=== PATIENT | female | born 1990 | race American Indian/Alaskan Native ===

== ENCOUNTER 2017-12-12 07:57 | Emergency (ER) | payer SELFPAY ==
[2017-12-12 08:13] VITALS: BP 105/60
[2017-12-12 08:34] LABS: Basophils % (Auto) 0.1 % (0.0-1.8); Eosinophils # (Auto) 0.1 K/mm3 (0.0-0.4); Eosinophils % (Auto) 0.7 % (0.0-4.3); Hematocrit 36.6 % (30.3-42.9); Hemoglobin 11.8 gm/dl (10.1-14.3); Lymphocytes # (Auto) 1.8 K/mm3 (1.2-5.4); Lymphocytes % (Auto) 22.8 % (13.4-35.0); Mean Corpuscular HGB Conc 32 % (30-34); Mean Corpuscular Hemoglobin 30 pg (28-32); Mean Corpuscular Volume 95 fl (79-97); Monocytes # (Auto) 0.5 K/mm3 (0.0-0.8); Monocytes % (Auto) 5.9 % (0.0-7.3); Platelet Count 212 K/mm3 (140-440); Red Blood Count 3.87 M/mm3 (3.65-5.03); Red Cell Distribution Width 14.1 % (13.2-15.2)
[2017-12-12 08:51] LABS: Alanine Aminotransferase 10 units/L (7-56); Albumin 3.7 g/dL (3.9-5); BUN/Creatinine Ratio 23; Blood Urea Nitrogen 7 mg/dL (7-17); Calcium 8.2 mg/dL (8.4-10.2); Hemolysis Index 24
[2017-12-12 11:48] LABS: Bacteria,Urine 1+ /HPF (Negative); Bilirubin,Urine NEG (Negative); Blood,Urine NEG (Negative); Color,Urine Yellow (Yellow); Mucus,Urine FEW /HPF; Nitrite,Urine NEG (Negative); Protein,Urine <15 mg/dL mg/dL (Negative); Urobilinogen,Urine < 2.0 mg/dL (<2.0); WBC,Urine < 1.0 /HPF (0.0-6.0)
== END 2017-12-12 09:00 | disposition left against medical advice (07) ==
LOC: ED 07:57
DX: R10.9 Unspecified abdominal pain (principal); Z53.21 Procedure and treatment not carried out due to patient leaving prior to being seen by health care provider
CPT/HCPCS: 36415; 80053; 81001; 84703; 85025

== ENCOUNTER 2018-06-15 19:54 | Inpatient (IN) | payer MEDICAID ==
[2018-06-15 22:46] LABS: Basophils % (Auto) 0.2 % (0.0-1.8); Eosinophils # (Auto) 0.1 K/mm3 (0.0-0.4); Eosinophils % (Auto) 0.8 % (0.0-4.3); Hematocrit 29.5 % (30.3-42.9); Hemoglobin 10.5 gm/dl (10.1-14.3); Mean Corpuscular HGB Conc 36 % (30-34); Mean Corpuscular Hemoglobin 32 pg (28-32); Mean Corpuscular Volume 89 fl (79-97); Monocytes # (Auto) 0.5 K/mm3 (0.0-0.8); Monocytes % (Auto) 6.1 % (0.0-7.3); Platelet Count 231 K/mm3 (140-440); Red Blood Count 3.31 M/mm3 (3.65-5.03); Red Cell Distribution Width 13.5 % (13.2-15.2)
[2018-06-15] MEDS ORDERED: LACTATED RINGERS 1,000 ML ONE (22:50)
[2018-06-15] MEDS: LACTATED RINGERS 1,000 ML IV SCH (23:04)
[2018-06-16] MEDS: LACTATED RINGERS 1,000 ML IV SCH ×4 (06:44→21:58)
[2018-06-16] MEDS ORDERED: REGLAN ONE (07:04)
[2018-06-16] MEDS ORDERED: PEPCID IV ONE (07:04)
[2018-06-16] MEDS ORDERED: BICITRA ONE (07:04)
[2018-06-16] MEDS ORDERED: ANCEF/STERILE WATER 2 GM/20 ML 2 GM/20 ML SYRINGE IV ONE (07:04)
[2018-06-16] MEDS ORDERED: REGLAN IV NR (10:00)
[2018-06-16] MEDS ORDERED: ANCEF/STERILE WATER 2 GM/20 ML 2 GM/20 ML SYRINGE IV NR (10:00)
[2018-06-16] MEDS ORDERED: BICITRA PO NR (10:00)
[2018-06-16] MEDS ORDERED: PITOCin/NS 20 UNIT/1000ML DRIP 20 UNITS/1,000 ML BAG IV SCH ×2 (10:00→15:00)
[2018-06-16] MEDS ORDERED: PEPCID IV NR (10:00)
--- NOTE | 2018-06-16 12:36 | Anesthesia Consultation ---
Anesthesia Consult and Med Hx Date of service: 06/16/18 - Airway Anesthetic Teeth Evaluation: Good ROM Head & Neck: Adequate Mental/Hyoid Distance: Adequate Mallampati Class: Class II Intubation Access Assessment: Probably Good - Pre-Operative Health Status ASA Pre-Surgery Classification: ASA3 Proposed Anesthetic Plan: Epidural, Spinal - Pulmonary Hx Asthma: Yes (last attack ago) Hx Pneumonia: No - Cardiovascular System Hx Hypertension: Yes (PIH) - Central Nervous System Hx Seizures: No Hx Psychiatric Problems: No - Endocrine Hx Renal Disease: No (PIH) Hx Hypothyroidism: No Hx Hyperthyroidism: No - Hematic Hx Anemia: Yes Hx Sickle Cell Disease: No
[2018-06-16 12:40] LABS: Basophils % (Auto) 0.1 % (0.0-1.8); Eosinophils % (Auto) 0.7 % (0.0-4.3); Hematocrit 29.7 % (30.3-42.9); Hemoglobin 10.1 gm/dl (10.1-14.3); Lymphocytes # (Auto) 2.2 K/mm3 (1.2-5.4); Mean Corpuscular HGB Conc 34 % (30-34); Mean Corpuscular Hemoglobin 31 pg (28-32); Mean Corpuscular Volume 90 fl (79-97); Monocytes # (Auto) 0.5 K/mm3 (0.0-0.8); Platelet Count 222 K/mm3 (140-440); Red Blood Count 3.31 M/mm3 (3.65-5.03); Red Cell Distribution Width 13.6 % (13.2-15.2)
--- NOTE | 2018-06-16 12:41 | Anesthesia Day of Surgery ---
Anesthesia Day of Surgery - Day of Surgery Patient Examined: Yes Patient H&P Reviewed: Yes Patient is NPO: Yes
[2018-06-16] MEDS ORDERED: BENADRYL IV PRN (12:42)
[2018-06-16] MEDS ORDERED: PHENERGAN PR PRN (12:42)
[2018-06-16] MEDS ORDERED: NARCAN 0.4 MG/1 ML IV PRN ×2 (12:42→14:49)
[2018-06-16] MEDS ORDERED: DILAUDID IV PRN (12:42)
[2018-06-16] MEDS ORDERED: ZOFRAN IV PRN ×2 (12:42→14:49)
[2018-06-16] MEDS ORDERED: PHENERGAN PO PRN (12:42)
[2018-06-16] MEDS ORDERED: TORADOL IV PRN ×3 (12:46→14:49)
--- NOTE | 2018-06-16 12:50 | History and Physical Report ---
History of Present Illness Date of examination: 06/16/18 Date of admission: 06/15/18 19:54 Chief complaint: SIUP at 39 weeks gestation with oligohydramnios and previous C/section. History of present illness: Patient is a 27 years old , LMP 09/12/17, EDC 06/19/18 at 39 weeks and 4 days gestation who was admitted for oligohydramnios. She was seen in the office yesterday for a routine visit and YUDY was found to be 5.2. She denied any contractions, fluid leakage, or bleeding. She reports good movement. 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 Family/Genetic History: none Social history: no significant social history - Obstetrical History Expected Date of Delivery: 06/19/18 Actual Gestation: 39 Week(s) 4 Day(s) : 6 Para: 3 Spontaneous Abortions: 2 Number of Living Children: 3 #1 Gender: Female year: 2,010 Birthweight: 3.459 kg Method of Delivery: Gestational age at delivery: 40 Complications: none #2 Infant Gender: Male year: 2,011 Birthweight: 3.175 kg Method of Delivery: Gestational age at delivery: 40 Complications: none #3 Gender: Female year: 2,016 Method of Delivery: Gestational age at delivery: 39 Complications: none Medications and Allergies Allergies Allergy/AdvReac Type Severity Reaction Status Date / Time latex Allergy Severe Hives Verified 06/15/18 22:15 Home Medications Medication Instructions Recorded Confirmed Last Taken Type No Known Home Medications [No 06/16/18 06/16/18 Unknown History Reported Home Medications] Active Meds: Active Medications Lactated Ringer's (Lactated Ringers) 1,000 mls @ 125 mls/hr IV DIRECT LENY Last Admin: 06/16/18 06:44 Dose: 125 mls/hr Lactated Ringer's (Lactated Ringers) 1,000 mls @ 2,250 mls/hr IV PREOP LENY Stop: 06/17/18 10:27 Last Admin: 06/16/18 11:20 Dose: 2,250 mls/hr Oxytocin/Sodium Chloride (Pitocin/Ns 20 Unit/1000ml Drip) 20 units in 1,000 mls @ 0 mls/hr IV TITR LENY - Vital Signs Vital signs: Vital Signs Pulse Pulse Ox 96 H 99 06/15/18 20:41 06/15/18 20:41 Temp Pulse Resp BP Pulse Ox 98.5 F 72 18 97/55 98 06/16/18 07:00 06/16/18 12:33 06/16/18 05:00 06/16/18 12:33 06/16/18 11:24 - Physical Exam Cardiovascular: Normal S1, Normal S2 Lungs: Positive: Clear to auscultation Vulva: both: normal Deep Tendon Reflex Grade: Normal +2 - Obstetrical FHR: category 1 Uterine Contraction Monitor Mode: External Cervical Dilatation: 0 Cervical Effacement Percentage: 0 station: -3 Results Result Diagrams: 06/16/18 12:21 Abnormal lab results 06/15/18 Range/Units 22:10 RBC 3.31 L (3.65-5.03) M/mm3 Hct 29.5 L (30.3-42.9) % MCHC 36 H (30-34) % All other labs normal. Assessment and Plan - Patient Problems (1) 39 weeks gestation of Current Visit: Yes Status: Acute (2) Oligohydramnios Current Visit: Yes Status: Acute Plan to address problem: Admit to labor floor. Routine admitting labs. IV hydration. monitoring. Patient has been counselled for repeat C/section. Risks and benefits of the procedure were discussed in detail with her such as infection, hemorrhage requiring blood transfusion, injury to the bowel, bladder and blood vessels. She expressed understanding, her questions were answered, she gave her informed consent. Anesthesia has been notified. Pt is NPO. (3) Anemia Current Visit: Yes Status: Acute Qualifiers: Anemia type: iron deficiency
[2018-06-16] MEDS ORDERED: SODIUM CHLORIDE FLUSH SYRINGE 10 ML IV NR ×2 (13:00→15:00)
[2018-06-16] MEDS ORDERED: NACL 0.9% IR ONE (13:50)
[2018-06-16] MEDS ORDERED: WATER FOR IRRIG STERILE IR ONE (13:50)
[2018-06-16] MEDS ORDERED: NEO SYNEPHRINE/NS Syringe(OR USE) IV ONE (14:00)
[2018-06-16] MEDS ORDERED: XYLOCAINE MPF 2% ONE (14:00)
[2018-06-16] MEDS ORDERED: METHERGINE IM ONE (14:15)
[2018-06-16] MEDS ORDERED: LACTATED RINGERS 1,000 ML ONE (14:19)
[2018-06-16] MEDS ORDERED: DILAUDID ONE (14:20)
[2018-06-16] MEDS ORDERED: TYLENOL PO PRN (14:49)
[2018-06-16] MEDS ORDERED: SENOKOT PO PRN (14:49)
[2018-06-16] MEDS ORDERED: MILK OF MAGNESIA PO PRN (14:49)
[2018-06-16] MEDS ORDERED: LANSINOH TP PRN (14:49)
[2018-06-16] MEDS ORDERED: MYLICON PO PRN (14:49)
[2018-06-16] MEDS ORDERED: TUCKS PAD TP PRN (14:49)
--- NOTE | 2018-06-16 15:04 | Operative Report ---
Operative Report Operative Report: Preoperative diagnosis: 1. SIUP at 39 weeks and 4 days gestation not in labor. 2. Previous section 2. 3. Oligohydramnios. Postoperative diagnosis: Same as preoperative diagnosis. Procedure: Repeat low transverse section. Surgeon: Dr. Mancia Galley Worker: none Anesthesia: Combined Spinal-epidural EBL: 900 cc IVF: 1 liter of RL Urine: 100 cc clear Complications: Intraoperative uterine atony responsive to IV Pitocin and IM Methergine. Intraoperative findings: 1. A female found in PIPPA position, delivered at 2:04 PM, Apgars 8 at 1 minutes and 9 at 5 minutes, weight 5 lbs. 10 oz. 2. Normal Fallopian tubes and ovaries bilaterally. Procedure details: Risks, benefits, and alternatives of the procedure were discussed in detail with the patient which included but not limited to the risk of infection, hemorrhage requiring blood transfusion, injury to bowel bladder and blood vessels. The patient expressed understanding, her questions were answered, and she gave informed consent. The patient was taken to the operating room with an IV fluid infusing Ringer's lactate. In the operating room, she was placed in the sitting position and given a combined spinal and epidural anesthesia. Then, she was placed in a dorsal supine position with a leftward tilt. Venodyne boots and Roman catheter were placed. The abdomen was washed and she was prepared and draped in the usual sterile fashion. After confirming adequate epidural-spinal anesthesia, a Pfannenstiel skin incision was made at the level of the previous scar using the scalpel. This incision was carried down to the underlying fascia using the Bovie. The fascia was incised bilaterally in a curvilinear fashion using the Bovie. 2 straight Kocker clamps were used to grasp the upper edge of the fascia to dissect the underlying rectus abdominis muscle. A similar procedure was done with the lower edge of the fascia to dissect the underlying rectus abdominis muscle. The muscle was bluntly from the midline by pulling. The parietal peritoneum was grasped with 2 hemostat clamps and entered sharply using Metzenbaum scissors. A quick survey of the anatomy revealed a gravid uterus, normal fallopian tubes and ovaries bilaterally. A bladder flap was created. Ken'O retractor was placed in the incision. A low transverse incision was made in the lower uterine segment using the scalpel and extended bilaterally in her curvilinear fashion using bandage scissors. The amniotic sac was ruptured and there was copious amount of clear amniotic fluids. The was found in an PIPPA position, the head was delivered atraumatically followed by the delivery of the shoulders and the rest of the body at 2:04 pm. The cord was clamped x 2 and cut, and the infant was handed off to the waiting insole and outsole splitter. The was a female, apgars were 8 at 1 minute and 9 at 5 minutes, weight was 5 lbs. 10 oz. Cord blood was collected. The placenta was delivered manually and it was complete with a three-vessel cord. The uterine cavity was cleaned of clots and debris using dry lap sponges. The uterine incision was closed in a running locked fashion using 0 Vicryl sutures. A second layer of imbrication was placed. The gutters were cleaned of clots and debris using lap sponges. After confirming adequate hemostasis, the instruments were removed from the abdominal cavity. The fascia was closed in a running fashion using 0 Vicryl sutures. The skin was closed with joanne. Sterile dressing was placed. The count of laps, needles, sponges and instruments were correct 2. The patient tolerated the procedure well. She was taken to the recovery room in a stable condition.
[2018-06-16] MEDS: MORPHINE IV PRN (21:58)
[2018-06-17 02:37] LABS: Hematocrit 27.2 % (30.3-42.9)
[2018-06-17] MEDS: MORPHINE IV PRN (05:47)
--- NOTE | 2018-06-17 09:58 | Progress Note ---
Assessment and Plan - Patient Problems (1) S/P repeat low transverse Current Visit: Yes Status: Acute Plan to address problem: POD 1 - stable Continue routine postop orders Encouraged ambulation, as tolerated Anticipate discharge in 24-48 hrs Subjective - Subjective Date of service: 06/17/18 Principal diagnosis: s/p Repeat LTCS, POD #1 Patient reports: appetite normal, voiding normally, pain well controlled, flatus , ambulating normally, no dizzy ambulation, no bowel movement [place]: doing well, bottle feeding Objective - Vital Signs Latest vital signs: Vital Signs Temp Pulse Resp BP BP Pulse Ox 06/17/18 04:25 98.4 F 56 L 18 101/56 06/17/18 00:00 98.6 F 68 18 124/73 06/16/18 20:15 98.1 F 74 18 107/64 06/16/18 16:42 97.5 F L 76 18 115/74 100 06/16/18 15:55 98.6 F 60 19 111/72 100 06/16/18 15:49 65 14 113/59 100 06/16/18 15:43 66 19 104/71 100 06/16/18 15:37 70 17 110/67 100 06/16/18 15:31 66 19 108/72 100 06/16/18 15:25 62 14 107/64 100 06/16/18 15:19 64 18 107/67 100 06/16/18 15:13 69 17 115/71 100 06/16/18 15:07 97.8 F 66 14 113/68 06/16/18 12:34 77 90/54 06/16/18 12:33 72 97/55 06/16/18 12:30 98.2 F 77 18 90/54 06/16/18 12:13 78 93/55 06/16/18 11:24 106 H 98 06/16/18 11:19 80 100 06/16/18 11:14 83 98 06/16/18 11:13 85 131/68 06/16/18 11:09 80 99 06/16/18 11:04 93 H 97 06/16/18 10:59 94 H 99 06/16/18 10:54 64 100 06/16/18 10:49 76 100 06/16/18 10:44 78 99 06/16/18 10:39 75 99 06/16/18 10:33 80 97 06/16/18 10:29 78 97 06/16/18 10:24 79 97 06/16/18 10:19 80 97 06/16/18 10:14 78 99 06/16/18 10:13 90 100/57 06/16/18 10:09 82 99 06/16/18 10:04 72 93 06/16/18 09:59 84 99 Intake and Output 06/16/18 06/17/18 06/17/18 23:59 07:59 15:59 Intake Total 490 360 Output Total 400 2100 Balance 90 -1740 Intake: IV 250 Left Hand 250 Oral 240 360 Output: Urine 400 2100 Indwelling Catheter 400 1800 Void 300 Other: Total, Intake Amount 240 120 Total, Output Amount 400 300 - Exam Vulva: both: normal Uterus: Present: normal, firm, fundal height at umbilicus Extremities: Present: normal Incision: Present: normal, dry, dressed - Labs Labs: Abnormal lab results 06/16/18 06/17/18 Range/Units 12:21 02:25 RBC 3.31 L (3.65-5.03) M/mm3 Hgb 9.0 L (10.1-14.3) gm/dl Hct 29.7 L 27.2 L (30.3-42.9) %
[2018-06-17] MEDS: PRENATAL VITAMIN PO SCH (11:53)
[2018-06-17] MEDS: FEOSOL PO SCH (11:53)
[2018-06-17] MEDS: PERCOCET 5/325 PO PRN ×2 (11:53→17:48)
[2018-06-17] MEDS: MOTRIN PO PRN ×2 (11:53→17:48)
[2018-06-17] MEDS: NORCO 5/325 PO PRN (23:30)
[2018-06-18] MEDS: NORCO 5/325 PO PRN ×2 (06:06→12:05)
[2018-06-18] MEDS: PRENATAL VITAMIN PO SCH (12:05)
[2018-06-18] MEDS: MOTRIN PO PRN (12:05)
[2018-06-18] MEDS: FEOSOL PO SCH (12:05)
--- NOTE | 2018-06-18 12:05 | Progress Note ---
Assessment and Plan A: /postop day 2 repeat low transverse section. P: Continue to encourage ambulation. Anticipate discharge tomorrow. Subjective - Subjective Date of service: 06/18/18 Principal diagnosis: s/p Repeat LTCS, POD #2 Interval history: /postop day 2 S/P repeat low transverse section. Patient is doing well. Voiding without difficulty, ambulating well, and tolerating a regular diet without nausea or vomiting. Patient reports small amount of locha. Patient denies headache, chest pain, cough, shortness of breath, leg pain, abdominal pain, heavy bleeding, or symptoms of depression. Patient reports: appetite normal, voiding normally, pain well controlled, flatus , ambulating normally [place]: doing well Objective - Vital Signs Latest vital signs: Vital Signs Temp Pulse Resp BP BP Pulse Ox 06/18/18 11:44 97.9 F 99 H 18 114/71 100 06/18/18 07:53 98.4 F 110 H 16 111/87 100 06/18/18 00:00 98.6 F 66 18 112/79 06/17/18 16:20 98.4 F 89 133/80 Intake and Output 06/17/18 06/18/18 06/18/18 23:59 07:59 15:59 Intake Total 120 480 Balance 120 480 Intake: Oral 120 480 Other: Total, Intake Amount 120 480 # Voids Indwelling Catheter 1 Void 1 - Exam Breasts: Present: deferred Cardiovascular: Present: Regular rate, Normal S1, Normal S2 Lungs: Present: Clear to auscultation Abdomen: Present: normal appearance, soft, normal bowel sounds. Absent: distention, tenderness, guarding Uterus: Present: normal, firm, fundal height below umbilicus. Absent: bogginess , tenderness Extremities: Present: normal. Absent: tenderness, edema Incision: Present: normal, dry, intact, dressed
--- NOTE | 2018-06-18 12:50 | Discharge Summary ---
Providers - Providers Date of Admission: 06/16/18 14:49 Date of discharge: 06/18/18 Attending physician: LORE CHOUDHARY MD Primary care physician: LORE CHOUDHARY MD Hospitalization Reason for admission: section Delivery: Procedure: repeat low transverse Incision: normal, dry, intact Other procedures: none complications: uterine atony Discharge diagnosis: IUP at term delivered baby: female Pertinent studies: Labs Hospital course: Normal hospital course Condition at discharge: Good Disposition: DC-01 TO HOME OR SELFCARE - Discharge Diagnoses (1) Term delivered Status: Acute Plan - Provider Discharge Summary Activity: routine, no sex for 6 weeks, no heavy lifting 4 weeks, no strenuous exercise Diet: routine Instructions: routine Additional instructions: Continue taking your vitamins and iron supplements at home (iron BID); pt. states she has Rx for these at home already. discharge instructions and warning signs discussed with patient in detail. Advised pt. to avoid IC, avoid lifting or heavy housework, avoid driving. Advised pt. to follow up with Dr. Choudhary at [facility] in 1 week. Advised pt. to return promptly if any problems. Pt. voiced understanding of discharge instructions. Call your doctor immediately for: * Fever > 100.5 * Heavy vaginal bleeding ( >1 pad per hour) * Severe persistent headache * Shortness of breath * Reddened, hot, painful area to leg or breast * Drainage or odor from incision. * Keep incision clean and dry at all times and follow doctor's instructions regarding bathing/showering - Follow up plan Follow up: LORE CHOUDHARY MD [Primary Care Provider] - 7 Days
[2018-06-18 17:02] VITALS: BP 103/66
[2018-06-18] MEDS ORDERED: FEOSOL PO SCH (22:00)
== END 2018-06-18 16:45 | disposition home or self-care (01) | DRG 765 ==
LOC: LD 19:54 → OBSVTOIN 06-16 14:49 → OB 06-16 17:54
PROVIDERS: ADMIT Obstetrics & Gynecology; ATTEND Obstetrics & Gynecology
PROC: 10D00Z1 Extraction of Products of Conception, Low, Open Approach (ICD-10-PCS; principal; 2018-06-16)
DX: O34.211 Maternal care for low transverse scar from previous cesarean delivery (principal); O41.03X0 Oligohydramnios, third trimester, not applicable or unspecified; O99.52 Diseases of the respiratory system complicating childbirth; J45.909 Unspecified asthma, uncomplicated; O99.344 Other mental disorders complicating childbirth; F32.9 Major depressive disorder, single episode, unspecified; O99.02 Anemia complicating childbirth; D64.9 Anemia, unspecified; Z3A.39 39 weeks gestation of pregnancy; Z37.0 Single live birth; Z91.040 Latex allergy status; O62.2 Other uterine inertia
CPT/HCPCS: 36415; 85014; 85018; 85025; 86850; 86900; 86901; G0378; G0379; J0690; J1170; J1885; J2210; J2270; J2370; J2590; J2765; J7120

== ENCOUNTER 2019-03-31 04:13 | Outpatient (CLI) | payer MEDICAID ==
[2019-03-31] MEDS ORDERED: LACTATED RINGERS 1,000 ML IV ONE (06:11)
[2019-03-31 06:41] VITALS: BP 98/74
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
== END 2019-03-31 12:10 | disposition home or self-care (01) ==
LOC: EDSTATUS 04:47 → TRG 04:49
PROVIDERS: ATTEND Obstetrics & Gynecology
DX: O47.02 False labor before 37 completed weeks of gestation, second trimester (principal); O13.2 Gestational [pregnancy-induced] hypertension without significant proteinuria, second trimester; O99.512 Diseases of the respiratory system complicating pregnancy, second trimester; J45.909 Unspecified asthma, uncomplicated; Z3A.25 25 weeks gestation of pregnancy
CPT/HCPCS: 59025; 76805; 76819; 85460; 96360; J7120; 96361

== ENCOUNTER 2019-07-06 23:29 | Inpatient (IN) | payer MEDICAID ==
[2019-07-06] MEDS ORDERED: LACTATED RINGERS 1,000 ML ONE (23:55)
--- NOTE | 2019-07-07 00:09 | Anesthesia Consultation ---
Anesthesia Consult and Med Hx Date of service: 07/07/19 - Airway Anesthetic Teeth Evaluation: Good ROM Head & Neck: Adequate Mental/Hyoid Distance: Adequate Mallampati Class: Class II Intubation Access Assessment: Good - Pulmonary Exam CTA: Yes - Cardiac Exam Cardiac Exam: RRR - Pre-Operative Health Status ASA Pre-Surgery Classification: ASA2, Emergency Proposed Anesthetic Plan: General, Spinal - Pulmonary Hx Asthma: Yes (last attack as child) Hx Pneumonia: No - Cardiovascular System Hx Hypertension: Yes (PIH) - Central Nervous System Hx Seizures: No Hx Psychiatric Problems: No - Endocrine Hx Renal Disease: No (PIH) Hx Insulin Dependent Diabetes: Yes (Gestational Biabetes) Hx Hypothyroidism: No Hx Hyperthyroidism: No - Hematic Hx Anemia: Yes Hx Sickle Cell Disease: No - Other Systems Hx Alcohol Use: No
--- NOTE | 2019-07-07 00:10 | Anesthesia Day of Surgery ---
Anesthesia Day of Surgery - Day of Surgery Patient Examined: Yes Patient H&P Reviewed: Yes Patient is NPO: Yes
[2019-07-07] MEDS ORDERED: PEPCID IV ONE (00:21)
[2019-07-07] MEDS ORDERED: BRETHINE SUB-Q ONE (00:23)
[2019-07-07 00:35] LABS: Basophils % (Auto) 0.2 % (0.0-1.8); Eosinophils % (Auto) 0.5 % (0.0-4.3); Hemoglobin 11.7 gm/dl (10.1-14.3); Lymphocytes # (Auto) 2.8 K/mm3 (1.2-5.4); Lymphocytes % (Auto) 35.1 % (13.4-35.0); Mean Corpuscular HGB Conc 33 % (30-34); Mean Corpuscular Volume 87 fl (79-97); Monocytes # (Auto) 0.5 K/mm3 (0.0-0.8); Monocytes % (Auto) 6.6 % (0.0-7.3); Platelet Count 206 K/mm3 (140-440); Red Cell Distribution Width 16.3 % (13.2-15.2)
[2019-07-07] MEDS ORDERED: REGLAN IV ONE (00:41)
[2019-07-07] MEDS ORDERED: BICITRA PO ONE (00:41)
[2019-07-07] MEDS ORDERED: NACL 0.9% 500 ML 500 ML IV ONE (00:41)
[2019-07-07] MEDS ORDERED: ZOFRAN ONE (00:47)
[2019-07-07] MEDS ORDERED: PITOCin/NS 20 UNIT/1000ML DRIP 20 UNITS/1,000 ML BAG IV SCH ×2 (01:00→02:00)
[2019-07-07] MEDS ORDERED: LACTATED RINGERS 1,000 ML IV SCH (01:00)
[2019-07-07] MEDS ORDERED: ANCEF/STERILE WATER 2 GM/20 ML 2 GM/20 ML SYRINGE IV NR (01:00)
[2019-07-07] MEDS ORDERED: TORADOL ONE (01:18)
[2019-07-07] MEDS ORDERED: BENADRYL ONE (01:18)
[2019-07-07] MEDS ORDERED: DILAUDID ONE (01:19)
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
[2019-07-07] MEDS ORDERED: TORADOL IV PRN (02:00)
[2019-07-07] MEDS ORDERED: TUCKS PAD TP PRN (02:00)
[2019-07-07] MEDS ORDERED: ZOFRAN IV PRN ×2 (02:00→03:25)
[2019-07-07] MEDS ORDERED: SODIUM CHLORIDE FLUSH SYRINGE 10 ML IV NR ×2 (02:00→04:00)
[2019-07-07] MEDS ORDERED: NORCO 5/325 PO PRN (02:00)
[2019-07-07] MEDS ORDERED: PHENERGAN PR PRN ×2 (02:00→03:25)
[2019-07-07] MEDS ORDERED: D5LR 1,000 ML IV SCH (02:00)
[2019-07-07] MEDS ORDERED: MYLICON PO PRN (02:00)
[2019-07-07] MEDS ORDERED: SENOKOT PO PRN (02:00)
[2019-07-07] MEDS ORDERED: MILK OF MAGNESIA PO PRN (02:00)
[2019-07-07] MEDS ORDERED: NARCAN 0.4 MG/1 ML IV PRN ×2 (02:00→03:25)
[2019-07-07] MEDS ORDERED: TYLENOL PO PRN (02:00)
[2019-07-07] MEDS ORDERED: LANSINOH TP PRN (02:00)
--- NOTE | 2019-07-07 02:00 | Operative Report ---
Operative Report Operative Report: Date of procedure: 07/07/2019 Pre-operative diagnosis: 1. Intrauterine at 39-3/7 weeks in labor 2. Previous 3 Post-operative diagnosis: Same Procedure name(s): Repeat low transverse section Surgeon: Luis Fernando Reyna MD Director Of Spa And Guest Experience: None Anesthesia: Spinal anesthesia by Perry Anderson CRNA EBL: 400 mL's Findings: A 2686 g male Apgars 8 at 1 minute and 9 at 5 minutes. Clear amniotic fluid. Normal uterus. Normal tubes and ovaries bilaterally. Procedure: After the patient was prepped and draped in usual sterile fashion, and after satisfactory level of epidural anesthesia was obtained, the skin knife was used to make a transverse skin incision through the previous skin scar. The incision was excised down to layer of the fascia, which was nicked in the midline and extended laterally using the Bovie cautery. The rectus muscles were dissected off the rectus fascia both superiorly and inferiorly. The rectus bellies in the midline, and the peritoneum was entered under direct visualization. The peritoneal incision was extended superiorly and inferiorly. A bladder flap was created and the bladder blade was then placed. The uterus was scored in a curvilinear linear fashion, entered in the midline revealing clear amniotic fluid. The 's head was delivered onto the surgical field, and the oropharynx and nasopharynx were bulb suctioned. The rest of the 's body was delivered, cord was doubly clamped and cut and the infant was handed to the waiting respiratory team. Cord blood was then obtained. The placenta was manually removed from the uterus, and the uterus removed from its normal anatomical position. After gentle uterine lavage, the incision was inspected and found to be without extensions. It was then closed in 2 layers using 0 Vicryl suture in a running interlocking fashion, the second layer imbricating the first. After good hemostasis was achieved, copious amounts or irrigation was performed, and the gutters were suctioned free of blood and blood clots. The Tisseel sealant was sprayed across the uterine incision. The uterus was then returned to its normal anatomical position, and after excellent hemostasis assured, the peritoneum was re-approximated using 3-0 Vicryl suture in a running interlocking fashion, and then the rectus muscles were re- approximated using 3-0 Vicryl suture in a [id number] configuration. The fascia was then re-approximated using 0 Vicryl suture in running interlocking fashion. The subcutaneous layer was made hemostatic using Bovie cautery, and the skin edges re-approximated using 4-0 Vicryl suture in a sub-cuticular fashion. Patient tolerated the procedure well was transported to recovery in stable condition.
--- NOTE | 2019-07-07 02:01 | Post Anesthesia Evaluation ---
- Post Anesthesia Evaluation Patient Participated: Yes Airway Patent: Yes Stable Respiratory Function: Yes Nausea/Vomiting: No Temp > 96.8F: Yes Pain Manageable: Yes Adequeate Hydration: Yes Anesthesia Complications: No Block Receding Appropriately: Yes Patient on Ventilator: No
[2019-07-07] MEDS ORDERED: PHENERGAN PO PRN (03:25)
[2019-07-07] MEDS ORDERED: DILAUDID IV PRN ×2 (03:25)
[2019-07-07] MEDS ORDERED: fentaNYL-BUPIV 2 MCG/ML-0.125% 200 MCG/100 ML BAG EPIDURAL SCH (04:00)
[2019-07-07] MEDS: ANCEF/NS 1 GM/50 ML 1 GM/50 ML BAG IV SCH ×2 (07:43→15:45)
[2019-07-07] MEDS: FEOSOL PO SCH (10:18)
[2019-07-07] MEDS: PRENATAL VITAMIN PO SCH (10:18)
[2019-07-07] MEDS: PERCOCET 5/325 PO PRN ×2 (14:10→20:50)
[2019-07-07 15:10] LABS: Hemoglobin 10.2 gm/dl (10.1-14.3)
[2019-07-07] MEDS: IBUPROFEN PO PRN (19:30)
[2019-07-08] MEDS: IBUPROFEN PO PRN ×2 (01:38→16:25)
[2019-07-08] MEDS: PERCOCET 5/325 PO PRN ×4 (03:12→23:18)
[2019-07-08] MEDS ORDERED: M-M-R II VACCINE SUB-Q ONE (06:00)
[2019-07-08] MEDS ORDERED: BOOSTRIX IM ONE (06:00)
[2019-07-08] MEDS: PRENATAL VITAMIN PO SCH (10:48)
[2019-07-08] MEDS: FEOSOL PO SCH (10:48)
--- NOTE | 2019-07-08 12:02 | Progress Note ---
Assessment and Plan A: /postop day 1 S/P repeat low transverse section. Anemia secondary to and blood loss. P: Iron supplementation. Recheck BP. Advance diet. Ambulation. Subjective - Subjective Date of service: 07/08/19 Principal diagnosis: /postop day 1 S/P repeat LTCS Interval history: /postop day 1 S/P repeat low transverse section. Doing well. Patient reports small amount of lochia. Voiding without difficulty, ambulating well, passing gas. Planning to eat regular diet for next meal. Tolerated liquids. Patient denies headache, chest pain, cough, shortness of breath, dizziness, leg pain, abdominal pain, nausea or vomiting, or heavy bleeding. Patient reports: appetite normal, voiding normally, pain well controlled, flatus, ambulating normally, no dizzy ambulation, no nauseated [place]: doing well Objective - Vital Signs Latest vital signs: Vital Signs Temp Pulse Resp BP Pulse Ox 07/08/19 07:47 97.8 F 81 18 99/57 99 07/08/19 03:12 18 07/08/19 01:38 18 07/07/19 23:35 98.2 F 79 20 97/52 99 07/07/19 20:50 18 07/07/19 19:30 18 07/07/19 17:30 98.1 F 67 18 103/56 99 Intake and Output 07/07/19 07/08/19 07/08/19 23:59 07:59 15:59 Output Total 400 Balance -400 Output: Urine 400 Void 400 Other: Total, Output Amount 400 # Voids Void 1 - Exam Cardiovascular: Present: Regular rate, Normal S1, Normal S2, No murmurs Lungs: Present: Clear to auscultation Abdomen: Present: normal appearance, soft, normal bowel sounds. Absent: distention, tenderness, guarding, rigidity Uterus: Present: normal, firm, fundal height below umbilicus. Absent: bogginess, tenderness Extremities: Present: normal. Absent: tenderness, edema Incision: Present: normal, dry, intact, dressed - Labs Labs: Abnormal lab results 07/07/19 Range/Units 14:04 Hct 30.0 L (30.3-42.9) %
[2019-07-08 15:58] LABS: Basophils # (Auto) 0.1 K/mm3 (0.0-0.1); Basophils % (Auto) 0.7 % (0.0-1.8); Eosinophils # (Auto) 0.2 K/mm3 (0.0-0.4); Eosinophils % (Auto) 1.5 % (0.0-4.3); Hematocrit 33.7 % (30.3-42.9); Hemoglobin 11.1 gm/dl (10.1-14.3); Lymphocytes # (Auto) 2.6 K/mm3 (1.2-5.4); Lymphocytes % (Auto) 22.7 % (13.4-35.0); Mean Corpuscular HGB Conc 33 % (30-34); Mean Corpuscular Volume 88 fl (79-97); Monocytes # (Auto) 0.8 K/mm3 (0.0-0.8); Monocytes % (Auto) 6.9 % (0.0-7.3); Platelet Count 217 K/mm3 (140-440); Red Blood Count 3.81 M/mm3 (3.65-5.03); Red Cell Distribution Width 16.3 % (13.2-15.2)
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
[2019-07-09] MEDS: PERCOCET 5/325 PO PRN (06:07)
[2019-07-09 09:02] VITALS: BP 102/55
[2019-07-09] MEDS: PRENATAL VITAMIN PO SCH (10:53)
[2019-07-09] MEDS: FEOSOL PO SCH (10:53)
--- NOTE | 2019-07-09 12:04 | Progress Note ---
Assessment and Plan A: /postop day 2 S/P repeat low transverse section. P: Consulted with Dr. Reyna re: discharging patient home today. Dr. Reyna states it is OK to discharge patient home today. Discussed with patient /postop discharge instructions and warning signs. Advised patient to continue taking her vitamins and iron supplements at home. Advised patient to avoid intercourse, driving, stair climbing, lifting or heavy housework, and tub baths (patient may take showers). Advised patient re: care of incision. Advised patient to follow up at [facility] in 1 week for incision check. Patient voiced understanding of all instructions. Subjective - Subjective Date of service: 07/09/19 Principal diagnosis: /postop day 2 S/P repeat LTCS Interval history: /postop day 2 S/P repeat low transverse section. Doing well. Patient reports small amount of lochia. Voiding without difficulty, ambulating well, passing gas. Tolerating a regular diet without nausea or vomiting. Patient denies headache, chest pain, cough, shortness of breath, dizziness, leg pain, abdominal pain, nausea or vomiting, or heavy bleeding. 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 Patient reports: appetite normal, voiding normally, pain well controlled, flatus, ambulating normally, no dizzy ambulation, no nauseated : doing well Objective - Vital Signs Latest vital signs: Vital Signs Temp Pulse Resp BP BP Pulse Ox 07/09/19 09:01 98.1 F 80 18 102/55 100 07/09/19 00:06 98.5 F 83 20 106/71 99 07/08/19 17:43 16 07/08/19 16:05 98.4 F 88 18 101/61 99 07/08/19 12:03 97.9 F 89 18 99/65 98 Intake and Output 07/08/19 07/09/19 07/09/19 23:59 07:59 15:59 Intake Total 480 240 Balance 480 240 Intake: Oral 360 240 Intake, Free Water 120 Other: Total, Intake Amount 360 240 # Voids Void 1 1 - Exam Cardiovascular: Present: Regular rate, Normal S1, Normal S2 Lungs: Present: Clear to auscultation Abdomen: Present: normal appearance, soft, normal bowel sounds. Absent: distention, tenderness, guarding, rigidity Uterus: Present: normal, firm, fundal height below umbilicus. Absent: bogginess, tenderness Extremities: Present: normal. Absent: tenderness, edema Incision: Present: normal, dry, intact - Labs Labs: Abnormal lab results 07/06/19 07/08/19 Range/Units 00:23 15:39 WBC 11.3 H (4.5-11.0) K/mm3 RDW 16.3 H (13.2-15.2) % Crossmatch See Detail
--- NOTE | 2019-07-09 12:09 | Discharge Summary ---
Providers - Providers Date of Admission: 07/07/19 02:27 Date of discharge: 07/09/19 Attending physician: LORE CHOUDHARY MD 07/08/19 22:36 Consult to Case Management [CONS] Urgent Services Needed at Discharge: Physical Integration Practitioner Notified:: yes Primary care physician: LORE CHOUDHARY MD Hospitalization Reason for admission: active labor Delivery: Procedure: repeat low transverse Incision: normal, dry, intact Other procedures: none complications: none Discharge diagnosis: IUP at term delivered baby: male Pertinent studies: Labs Hospital course: Normal hospital course. Condition at discharge: Good Disposition: DC-01 TO HOME OR SELFCARE - Discharge Diagnoses (1) Term delivered Status: Acute Plan - Discharge Medications Prescriptions: Ferrous Sulfate [Feosol 325 MG tab] 325 mg PO BID #60 tablet Ibuprofen [Motrin 600 MG tab] 600 mg PO Q8H PRN #30 tablet PRN Reason: Pain Multivitamin with Iron [Multivitamins with Iron] 1 each PO DAILY #30 tablet HYDROcodone/APAP 5-325 [[place] 5/325] 1 each PO Q6HR PRN #30 tablet PRN Reason: Pain - Provider Discharge Summary Activity: routine, no sex for 6 weeks, no heavy lifting 4 weeks, no strenuous exercise Diet: routine Instructions: routine Additional instructions: Continue taking your vitamins and iron supplements at home. Call your doctor immediately for: * Fever > 100.5 * Heavy vaginal bleeding ( >1 pad per hour) * Severe persistent headache * Shortness of breath * Reddened, hot, painful area to leg or breast * Drainage or odor from incision. * Keep incision clean and dry at all times and follow doctor's instructions regarding bathing/showering - Follow up plan Follow up: LORE CHOUDHARY MD [Primary Care Provider] - 7 Days
[2019-07-09] MEDS: IBUPROFEN PO PRN (13:26)
== END 2019-07-09 15:30 | disposition home or self-care (01) | DRG 766 ==
LOC: TRG 23:29 → LD 07-07 00:10 → TRG 07-07 02:26 → EEVIPCON 07-07 02:27 → APU 07-07 02:27 → OB 07-07 04:18
PROVIDERS: ADMIT Obstetrics & Gynecology; ATTEND Obstetrics & Gynecology
PROC: 10D00Z1 Extraction of Products of Conception, Low, Open Approach (ICD-10-PCS; principal; 2019-07-07)
PROC: 3E0234Z Introduction of Serum, Toxoid and Vaccine into Muscle, Percutaneous Approach (ICD-10-PCS; 2019-07-08)
DX: O34.211 Maternal care for low transverse scar from previous cesarean delivery (principal); Z37.0 Single live birth; Z3A.39 39 weeks gestation of pregnancy; D50.9 Iron deficiency anemia, unspecified; O99.52 Diseases of the respiratory system complicating childbirth; O99.02 Anemia complicating childbirth; Z23 Encounter for immunization; Z82.49 Family history of ischemic heart disease and other diseases of the circulatory system; Z83.3 Family history of diabetes mellitus
CPT/HCPCS: 36415; 85014; 85018; 85025; 86592; 86706; 86762; 86850; 86900; 86901; 86920; 87806; 88307; 90471; 90715; G0378; J0690; J1170; J1200; J1885; J2405; J2590; J2765; J3105; J7120; J7121; Q0169

== ENCOUNTER 2020-07-24 13:03 | Outpatient (CLI) | payer MEDICAID ==
[2020-07-24 13:34] VITALS: BP 109/66
[2020-07-24] MEDS ORDERED: BUTORPHANOL 2 MG/1 ML INJ IV NR (15:00)
--- NOTE | 2020-07-24 17:23 | Ultrasound Report ---
US OB limited INDICATION: INCISIONAL PAIN, LOWER BACK AND ABDOMEN PAIN. TECHNIQUE: Examination of the placenta with grayscale imaging. COMPARISON: None available. FINDINGS: There is no appreciable lifting or separation of the placenta. Placenta is posterior, left lateral, a nd grade 2. position is cephalic. heart rate measures 1 34 bpm. IMPRESSION: 1. No significant abnormality of the placenta, as detailed above. Signer Name: Soy Marroquin MD Signed: 07/24/2020 5:18 PM Workstation Name: [id number]
== END 2020-07-24 17:37 | disposition home or self-care (01) ==
LOC: TRG 13:03 → APU 13:08 → TRG 17:37
PROVIDERS: ATTEND Obstetrics & Gynecology
DX: O26.893 Other specified pregnancy related conditions, third trimester (principal); M54.5 Low back pain; R10.9 Unspecified abdominal pain; Z3A.38 38 weeks gestation of pregnancy
CPT/HCPCS: 59025; 76815; J0595

== ENCOUNTER 2020-08-01 05:00 | Inpatient (IN) | payer MEDICAID ==
[2020-08-01] MEDS ORDERED: LACTATED RINGERS 1,000 ML ONE (05:46)
[2020-08-01] MEDS: LACTATED RINGERS 1,000 ML IV SCH ×2 (05:55→06:45)
[2020-08-01] MEDS ORDERED: METOCLOPRAMIDE 10 MG/2 ML INJ IV ONE (06:02)
[2020-08-01] MEDS ORDERED: FAMOTIDINE 20 MG/2 ML INJ IV ONE (06:02)
[2020-08-01] MEDS ORDERED: BICITRA ORAL LIQD 30ML PO ONE (06:02)
[2020-08-01] MEDS ORDERED: DIPHtheria,PERTUSSIS(ACELL),TETANUS VACCINE/PF 0.5 ML VIAL IM ONE (06:06)
[2020-08-01 06:52] LABS: Basophils % (Auto) 0.1 % (0.0-1.8); Eosinophils # (Auto) 0.1 K/mm3 (0.0-0.4); Eosinophils % (Auto) 0.9 % (0.0-4.3); Hematocrit 30.1 % (30.3-42.9); Hemoglobin 9.9 gm/dl (10.1-14.3); Lymphocytes # (Auto) 2.6 K/mm3 (1.2-5.4); Lymphocytes % (Auto) 25.5 % (13.4-35.0); Mean Corpuscular HGB Conc 33 % (30-34); Mean Corpuscular Volume 90 fl (79-97); Monocytes # (Auto) 0.8 K/mm3 (0.0-0.8); Monocytes % (Auto) 7.9 % (0.0-7.3); Platelet Count 239 K/mm3 (140-440); Red Blood Count 3.34 M/mm3 (3.65-5.03); Red Cell Distribution Width 16.8 % (13.2-15.2)
[2020-08-01] MEDS ORDERED: OXYTOCIN 20 UNIT/1000ML DRIP 20 UNITS/1,000 ML BAG IV SCH ×2 (07:00→11:00)
--- NOTE | 2020-08-01 07:04 | Anesthesia Day of Surgery ---
Anesthesia Day of Surgery - Day of Surgery Patient Examined: Yes Patient H&P Reviewed: Yes Patient is NPO: Yes Beta Blockers: No Cardiac Clearance: No Pulmonary Clearance: No Higinio's Test: N/A
[2020-08-01] MEDS ORDERED: miSOPROStol 200 MCG TAB ONE (07:42)
[2020-08-01] MEDS ORDERED: METHYLERGONOVINE MALEATE 0.2 MG/ML VIAL IM ONE (07:42)
--- NOTE | 2020-08-01 07:56 | History and Physical Report ---
History of Present Illness Date of examination: 08/01/20 Date of admission: 08/01/20 05:00 Chief complaint: elective repeat section multiparity:declines bilateral tubal ligation History of present illness: 29yo GP at 39.5 weeks with four previous sections presents for repeat section SANKET 08/03/2020 PNC at [facility] OB Problem list: anemia records reviewed and in chart. Past History Past Surgical History: section Family/Genetic History: none - Obstetrical History Expected Date of Delivery: 08/03/20 Actual Gestation: 39 Week(s) 5 Day(s) : 8 Para: 5 Medications and Allergies Allergies Allergy/AdvReac Type Severity Reaction Status Date / Time latex Allergy Severe Hives Verified 06/15/18 22:15 Home Medications Medication Instructions Recorded Confirmed Last Taken Type Ferrous Sulfate [Feosol 325 MG tab] 325 mg PO BID #60 tablet 07/07/19 08/01/20 07/31/20 16:00 Rx HYDROcodone/APAP 5-325 [[place] 1 each PO Q6HR PRN #30 tablet 07/07/19 08/01/20 Unknown Rx 5/325] Ibuprofen [Motrin 600 MG tab] 600 mg PO Q8H PRN #30 tablet 07/07/19 08/01/20 Unknown Rx Multivitamin with Iron 1 each PO DAILY #30 tablet 07/07/19 08/01/20 07/31/20 16:00 Rx [Multivitamins with Iron] Active Meds: Active Medications Lactated Ringer's (Lactated Ringers) 1,000 mls @ 2,250 mls/hr IV PREOP LENY Stop: 08/02/20 07:27 Last Admin: 08/01/20 06:45 Dose: 2,250 mls/hr Documented by: Oxytocin/Sodium Chloride (Pitocin/Ns 20 Unit/1000ml Drip) 20 units in 1,000 mls @ 0 mls/hr IV DIRECT LENY Review of Systems All systems: negative (denies OB complaints) - Vital Signs Vital signs: Vital Signs Temp Pulse Resp BP 98.3 F 85 18 106/63 08/01/20 05:31 08/01/20 05:31 08/01/20 05:31 08/01/20 05:31 Temp Pulse Resp BP Pulse Ox 98.3 F 85 18 106/63 08/01/20 05:31 08/01/20 06:04 08/01/20 05:31 08/01/20 06:04 - Physical Exam Breasts: Positive: deferred Cardiovascular: Regular rate Abdomen: Positive: normal appearance, normal bowel sounds Genitourinary (Female): Positive: normal external genitalia, normal perenium Vagina: Positive: normal moisture Uterus: Positive: normal size Anus/Rectum: Positive: normal perianal skin Extremities: Positive: normal Deep Tendon Reflex Grade: Normal +2 - Obstetrical FHR: category 1 Results Result Diagrams: 08/01/20 05:55 Abnormal lab results 08/01/20 Range/Units 05:55 RBC 3.34 L (3.65-5.03) M/mm3 Hgb 9.9 L (10.1-14.3) gm/dl Hct 30.1 L (30.3-42.9) % RDW 16.8 H (13.2-15.2) % [place] % (Auto) 7.9 H (0.0-7.3) % All other labs normal. 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 Anesthesia at bedside. desires Depo Provera before discharge then Nexplanon as outpatient. She declines BTL with the understanding that the risks involved in future pregnancies are enormous for poor prognosis for both mother and baby. Mckayla Ramos MD
[2020-08-01] MEDS ORDERED: SODIUM CHLORIDE 0.9% 500 ML 500 ML IV NR (07:57)
[2020-08-01] MEDS ORDERED: ONDANSETRON 4 MG/2 ML INJ IV PRN (08:02)
[2020-08-01] MEDS ORDERED: HYDROmorphone 1 MG/1 ML INJ IV PRN (08:02)
[2020-08-01] MEDS ORDERED: NALOXONE 0.4 MG/1 ML INJ IV PRN ×2 (08:02→11:00)
--- NOTE | 2020-08-01 08:02 | Anesthesia Consultation ---
Anesthesia Consult and Med Hx Date of service: 08/01/20 - Airway Anesthetic Teeth Evaluation: Good ROM Head & Neck: Adequate Mental/Hyoid Distance: Adequate Mallampati Class: Class II Intubation Access Assessment: Good - Pulmonary Exam CTA: Yes - Cardiac Exam Cardiac Exam: RRR - Pre-Operative Health Status ASA Pre-Surgery Classification: ASA2 Proposed Anesthetic Plan: Epidural, Spinal - Pre-Anesthesia Comment Pre-Anesthesia Comments: csection x 4, GYM surgery, noanesthesia complicaions - Pulmonary Hx Smoking: No Hx Asthma: Yes (abutarol inhaler PRN, last used November 2019) Hx Respiratory Symptoms: No SOB: No COPD: No Home Oxygen Therapy: No Hx Pneumonia: No Hx Sleep Apnea: No - Cardiovascular System Hx Hypertension: No Hx Coronary Artery Disease: No Hx Heart Attack/AMI: No Hx Angina: No Hx Percutaneous Transluminal Coronary Angioplasty (PTCA): No Hx Cardia Arrhythmia: No Hx Pacemaker: No Hx Internal Defibrillator: No Hx Valvular Heart Disease: No Hx Heart Murmur: No Hx Peripheral Vascular Disease: No - Central Nervous System Hx Neuromuscular Disorder: No Hx Seizures: No CVA: No Hx Back Pain: No Hx Psychiatric Problems: No - Gastrointestinal Hx Ulcer: No Hx Gastroesophageal Reflux Disease: Yes - Endocrine Hx Renal Disease: No Hx End Stage Renal Disease: No Hx Cirrhosis: No Hx Liver Disease: No Hx Insulin Dependent Diabetes: Yes (Gestational diabetes) Hx Non-Insulin Dependent Diabetes: No Hx Thyroid Disease: No Hx Hypothyroidism: No Hx Hyperthyroidism: No - Hematic Hx Anemia: Yes Hx Sickle Cell Disease: No - Other Systems Hx Alcohol Use: No Hx Substance Use: No Hx Cancer: No
[2020-08-01] MEDS ORDERED: ceFAZolin/STERILE WATER 2 GM/20 ML SYRINGE IV ONE (08:15)
[2020-08-01] MEDS ORDERED: SODIUM CHLORIDE 0.9% IRR 1,500 ML BOTTLE IR ONE (08:48)
[2020-08-01] MEDS ORDERED: WATER FOR IRRIG STERILE 1,500 ML BOTTLE IR ONE (08:48)
[2020-08-01] MEDS ORDERED: OXYTOCIN 10 UNIT/1 ML INJ ONE (08:50)
[2020-08-01] MEDS ORDERED: ONDANSETRON 4 MG/2 ML INJ ONE (08:50)
[2020-08-01] MEDS ORDERED: PHENYLEPHRINE 10 MG/1 ML INJ SDV ONE (08:54)
[2020-08-01] MEDS ORDERED: KETAMINE/STERILE WATER 50 MG/ML SYRINGE ONE (09:10)
[2020-08-01] MEDS ORDERED: DEXMEDETOMIDINE 200 MCG/2 ML VIAL IV ONE (09:19)
[2020-08-01] MEDS ORDERED: LIDOCAINE MPF (2%) 20 MG/1 ML VIAL 5 ML ONE (09:20)
[2020-08-01] MEDS ORDERED: dexAMETHasone 20 MG/5 ML VIAL ONE (09:59)
[2020-08-01] MEDS ORDERED: BUPIVACAINE/PF (0.5%) 5 MG/1 ML 30 ML VIAL INFILTRATI ONE (09:59)
[2020-08-01] MEDS ORDERED: SODIUM CHLORIDE P/F VIAL 10 ML 30 ML ONE (10:00)
--- NOTE | 2020-08-01 10:00 | Procedure Note ---
OB Delivery Note - Delivery Date of Delivery: 08/01/20 Surgeon: ELAINE TORO Estimated blood loss: other (650ml) - Section Postop diagnosis: same section procedure: repeat low transverse Disposition: PACU Complications: none Narrative: Preop diagnosis: IUP at 39.5 weeks, previous sectionx4 for elective section Postop diagnosis: Same Procedure: Repeat low transverse section via Pfannenstiel incision Surgeon: Dr. Elaine Toro Anesthesia spinal Complications none EBL 650ml IV [id number] mL Urine output 200mL, clear Drains: Roman to gravity Findings: Viable female with weight 2498gms and 8/9, normal uterus tubes and ovaries bilaterally Procedure: Patient was consented in OB triage, taken to the operating room where she received excellent spinal anesthesia. She was then placed in the dorsal supine position with a leftward tilt. The abdomen was prepped and draped in a sterile fashion, and a timeout was verified. Adequate anesthesia was confirmed prior to the skin incision. A Pfannenstiel skin incision was made with a scalpel taken down to the underlying structures and the fascia was incised in the midline. The incision was extended laterally with curved Ramos scissors, the superior and inferior aspects of the fascial incisions were grasp ed with Samaria clamps and the rectus muscles dissected sharply. The abdomen was entered bluntly in the midline carried down inferiorly with good visualization of the bladder. THe bladder blade was inserted, the uterine incision was made sharply with a scalpel. The inferior and superior aspect of the uterine incisions were extended bluntly, the baby's head was delivered atraumatically. The remainder of the delivery was atraumatic, no nuchal cord noted. The cord was clamped and cut and baby handed to waiting NICU team. An intact placenta with three-vessel cord delivered manually. The uterus was then cleared of all clots and debris and the uterus exteriorized. The uterine incision was closed with 3 layers of 0 chromic with excellent hemostasis. The abdomen was then irrigated with warm normal saline and the uterus placed back into the abdomen atraumatically. A second look at the uterine incision and ensured hemostasis. Hemobalst applied to the uterine incision as procoagulant and anti-adhesive The peritoneum was closed with 3-0 Vicryl, the rectus muscles approximated with 3-0 Vicryl, and the fascia closed with 0 Vicryl in the usual fashion. The subcuticular structures were closed with interrupted sutures of 3-0 Vicryl and the skin closed with 4-0 Monocryl. A pressure dressing was applied. All sponge needle and instrument counts were correct x2. There were no complications. Mom and baby stable to recovery and . EBL 650ml Mckayla Toro MD
--- NOTE | 2020-08-01 10:30 | Progress Note ---
Spinal Anesthesia Block - Spinal Anesthesia Block Start Time: 08:22 Stop Time: 08:40 Performed by:: CAROLINE CADENA Procedure: Patient IDed, H&P reviewed, all questions and concerns were answered, and consent was signed. Timeout was performed at bedside. Patient in sitting position. Sterile prep and drape was performed. [5] ml of 1% lidocaine skin wheal at L[3]- L [4]. 18-gauge Touhy epidural needle was advanced to loss of resistance with air technique to 7cm x2 attempts. Negative CSF negative blood via Tuohy needle. #27g Spinal needle clear, free flowing CSF, Pecedex 10 mcg. Epidural catheter advanced to [12] centimeters. [negative] Aspiration [negative] test dose. Sterile dressing applied. Patient tolerated procedure.
[2020-08-01] MEDS ORDERED: ACETAMINOPHEN 325 MG TAB PO PRN (11:00)
[2020-08-01] MEDS ORDERED: MORPHINE 2 MG/1 ML INJ IV PRN (12:00)
[2020-08-01] MEDS ORDERED: WITCH HAZEL/ GLYCERIN PAD TP PRN (12:00)
[2020-08-01] MEDS ORDERED: SIMETHICONE 80 MG CHEW TAB PO PRN (12:00)
[2020-08-01] MEDS ORDERED: LANOLIN/ZINC/DIMETHICONE (LANSINOH) 7 GM TP PRN (12:00)
[2020-08-01] MEDS ORDERED: MORPHINE 4 MG/1 ML INJ IV PRN (12:00)
[2020-08-01] MEDS: HYDROcodone/ACETAMINOPHEN 5-325 MG TAB PO PRN ×3 (13:21→20:00)
[2020-08-01] MEDS: IBUPROFEN 800 MG TAB PO PRN ×2 (13:30→20:00)
[2020-08-01] MEDS ORDERED: MORPHINE 2 MG/1 ML INJ IM ONE (14:40)
[2020-08-01 22:44] LABS: Hematocrit 30.5 % (30.3-42.9); Hemoglobin 9.9 gm/dl (10.1-14.3)
[2020-08-02] MEDS: HYDROcodone/ACETAMINOPHEN 5-325 MG TAB PO PRN ×2 (00:19→06:09)
[2020-08-02] MEDS: IBUPROFEN 800 MG TAB PO PRN ×4 (03:24→23:44)
--- NOTE | 2020-08-02 09:38 | Progress Note ---
Assessment and Plan - Patient Problems (1) S/P repeat low transverse Current Visit: No Status: Acute Plan to address problem: Continue routine PP orders Keep dressing clean and dry, remove on POD 2 Anticipate d/c home in 24-48 hrs (2) Incisional pain Current Visit: Yes Status: Acute Plan to address problem: Change pain meds to Percocet 2 tabs q 4 hrs prn Alternate Ibuprofen with Percocet Increase water intake to decrease constipation (3) Anemia Onset Date: 07/07/19 Current Visit: No Status: Acute Qualifiers: Anemia type: iron deficiency Plan to address problem: Asymptomatic Increase iron rich foods into diet Subjective - Subjective Date of service: 08/02/20 Principal diagnosis: S/P repeat C/S; POD#1 Interval history: See admission H & P; OB operative note and PP progress notes Patient reports: appetite normal, voiding normally, flatus, pain poorly controlled, ambulating normally (with difficulty seconary to pain), no bowel movement [place]: doing well, bottle feeding Objective - Vital Signs Latest vital signs: Vital Signs Temp Pulse Resp BP BP Pulse Ox 08/02/20 08:18 98.0 F 18 99/59 08/02/20 06:09 18 08/02/20 04:47 98.0 F 61 20 91/51 98 08/02/20 03:24 18 08/02/20 00:19 18 08/01/20 23:57 98.1 F 77 20 108/68 99 08/01/20 20:31 98.3 F 70 20 103/63 98 08/01/20 20:00 18 08/01/20 19:28 18 08/01/20 15:40 98.1 F 71 18 111/69 08/01/20 12:10 97.7 F 80 16 95/69 100 08/01/20 10:59 97.5 F L 77 15 109/50 21 L 08/01/20 10:45 97.5 F L 77 15 101/45 100 08/01/20 10:30 77 15 101/45 100 08/01/20 10:15 72 22 93/38 100 08/01/20 10:10 71 20 92/41 100 08/01/20 10:05 76 18 93/35 100 08/01/20 10:02 97.4 F L 77 16 86/38 100 Intake and Output 08/01/20 08/02/20 08/02/20 23:59 07:59 15:59 Intake Total 720 120 Output Total 1800 700 Balance -1080 -580 Intake: Oral 720 120 Output: Urine 1800 700 Indwelling Catheter 1050 300 Uretheral (Roman) 750 Void 400 Other: Total, Intake Amount 200 120 Total, Output Amount 200 300 # Voids Indwelling Catheter 1 Estimated Blood Loss 650 - Exam Breasts: Present: normal Cardiovascular: Present: Regular rate Lungs: Present: Normal air movement Abdomen: Present: soft, tenderness Uterus: Present: firm, fundal height below umbilicus (U-1) Extremities: Present: normal Deep Tendon Reflex Grade: Normal +2 Incision: Present: dressed (no shadow drainage or bleeding noted) - Labs Labs: Abnormal lab results 08/01/20 08/01/20 Range/Units 05:55 22:18 Hgb 9.9 L (10.1-14.3) gm/dl Crossmatch See Detail
[2020-08-02] MEDS: oxyCODONE /ACETAMINOPHEN 5-325MG TAB PO PRN ×3 (10:32→21:40)
[2020-08-02] MEDS: MAGNESIUM HYDROXIDE (MOM) ORAL LIQD UDC PO PRN ×2 (10:33→18:01)
[2020-08-03] MEDS: oxyCODONE /ACETAMINOPHEN 5-325MG TAB PO PRN ×4 (02:32→20:01)
[2020-08-03] MEDS ORDERED: DIPHtheria,PERTUSSIS(ACELL),TETANUS VACCINE/PF 0.5 ML VIAL IM ONE (06:00)
[2020-08-03] MEDS: IBUPROFEN 800 MG TAB PO PRN ×2 (10:54→23:14)
[2020-08-03 15:04] LABS: Basophils # (Auto) 0.1 K/mm3 (0.0-0.1); Basophils % (Auto) 0.9 % (0.0-1.8); Eosinophils # (Auto) 0.2 K/mm3 (0.0-0.4); Eosinophils % (Auto) 1.8 % (0.0-4.3); Hematocrit 29.6 % (30.3-42.9); Hemoglobin 9.7 gm/dl (10.1-14.3); Lymphocytes # (Auto) 2.4 K/mm3 (1.2-5.4); Lymphocytes % (Auto) 26.1 % (13.4-35.0); Mean Corpuscular HGB Conc 33 % (30-34); Mean Corpuscular Volume 91 fl (79-97); Monocytes # (Auto) 0.6 K/mm3 (0.0-0.8); Monocytes % (Auto) 7.1 % (0.0-7.3); Platelet Count 238 K/mm3 (140-440); Red Blood Count 3.25 M/mm3 (3.65-5.03); Red Cell Distribution Width 17.1 % (13.2-15.2)
--- NOTE | 2020-08-03 15:06 | Progress Note ---
Assessment and Plan A: day 2 S/P repeat LTCS. Anemia. P: Recheck CBC. Encouraged patient to ambulate. Subjective - Subjective Date of service: 08/03/20 Principal diagnosis: S/P repeat C/S; POD#2 Patient reports: appetite normal, voiding normally, pain well controlled, flatus, ambulating normally, no dizzy ambulation, no nauseated [place]: doing well Objective - Vital Signs Latest vital signs: Vital Signs Temp Pulse Resp BP BP Pulse Ox 08/03/20 08:01 98.1 F 76 18 102/67 99 08/03/20 02:32 18 08/03/20 00:25 68 18 08/03/20 00:24 98.2 F 20 91/52 08/02/20 23:44 18 08/02/20 21:40 18 08/02/20 15:50 98.1 F 72 18 97/58 98 Intake and Output 08/02/20 08/03/20 08/03/20 23:59 07:59 15:59 Intake Total 400 150 360 Balance 400 150 360 Intake: Oral 400 150 360 Other: Total, Intake Amount 200 150 120 # Voids Indwelling Catheter 1 1 1 - Exam Abdomen: Present: normal appearance, soft. Absent: distention, tenderness, guarding, rigidity Uterus: Present: normal, firm, fundal height below umbilicus. Absent: bogginess, tenderness Extremities: Present: normal. Absent: tenderness, edema Incision: Present: normal, dry, intact
[2020-08-03] MEDS: FERROUS SULFATE 325 MG TAB PO SCH (20:05)
[2020-08-04] MEDS: oxyCODONE /ACETAMINOPHEN 5-325MG TAB PO PRN ×2 (02:02→08:28)
[2020-08-04] MEDS: IBUPROFEN 800 MG TAB PO PRN ×2 (06:02→11:02)
[2020-08-04 08:56] VITALS: BP 112/73
--- NOTE | 2020-08-04 10:11 | Progress Note ---
Assessment and Plan A: /postop day 3 S/P repeat LTCS. Anemia. P: Discharge patient home today. Discussed with patient /postop discharge instructions and warning signs. Advised patient to continue taking her vitamins and iron supplements at home. Advised patient to avoid intercourse, lifting, heavy housework. Advised patient re: care of incision and activity restrictions. Advised patient to follow up at [facility] in 1 week for incision check. Patient voiced understanding of instructions. Subjective - Subjective Date of service: 08/04/20 Principal diagnosis: S/P repeat C/S; POD#3 Interval history: Patient requests discharge today. Patient reports: appetite normal, voiding normally, pain well controlled, flatus, ambulating normally, no dizzy ambulation, no nauseated : doing well Objective - Vital Signs Latest vital signs: Vital Signs Temp Pulse Resp BP Pulse Ox 08/04/20 08:33 98.3 F 20 112/73 08/04/20 06:02 16 08/04/20 02:02 16 08/04/20 00:07 98.2 F 79 20 99/55 98 08/03/20 23:14 16 08/03/20 20:01 16 08/03/20 17:05 98.6 F 86 18 108/63 97 Intake and Output 08/03/20 08/04/20 08/04/20 23:59 07:59 15:59 Intake Total 440 120 Balance 440 120 Intake: Oral 440 120 Other: Total, Intake Amount 200 120 # Voids Indwelling Catheter 2 1 - Exam Cardiovascular: Present: Regular rate, No murmurs Lungs: Present: Clear to auscultation Abdomen: Present: normal appearance, soft, normal bowel sounds. Absent: distention, tenderness, guarding, rigidity Uterus: Present: normal, firm, fundal height below umbilicus. Absent: bogginess, tenderness Extremities: Present: normal. Absent: tenderness, edema Incision: Present: normal, dry, intact - Labs Labs: Abnormal lab results 08/01/20 08/03/20 Range/Units 05:55 14:48 RBC 3.25 L (3.65-5.03) M/mm3 Hgb 9.7 L (10.1-14.3) gm/dl Hct 29.6 L (30.3-42.9) % RDW 17.1 H (13.2-15.2) % Crossmatch See Detail
--- NOTE | 2020-08-04 10:14 | Discharge Summary ---
Providers - Providers Date of Admission: 08/01/20 05:00 Date of discharge: 08/04/20 Attending physician: VANDANA PAZ Primary care physician: VANDANA PAZ Hospitalization Reason for admission: section Delivery: Procedure: repeat low transverse Incision: normal, dry, intact Other procedures: none complications: none Discharge diagnosis: IUP at term delivered baby: female Pertinent studies: Labs Hospital course: Normal hospital course. Condition at discharge: Good Disposition: DC-01 TO HOME OR SELFCARE - Discharge Diagnoses (1) , delivered Status: Acute Plan - Discharge Medications Prescriptions: Ibuprofen [Motrin] 600 mg PO Q8H PRN #30 tablet PRN Reason: Pain oxyCODONE /ACETAMINOPHEN [Percocet 5/325] 1 tab PO Q6HR PRN #20 tablet PRN Reason: Pain - Provider Discharge Summary Activity: routine, no sex for 6 weeks, no heavy lifting 4 weeks, no strenuous exercise Diet: routine Instructions: routine Additional instructions: Continue taking your vitamin and iron supplement at home Call your doctor immediately for: * Fever > 100.5 * Heavy vaginal bleeding ( >1 pad per hour) * Severe persistent headache * Shortness of breath * Reddened, hot, painful area to leg or breast * Drainage or odor from incision. * Keep incision clean and dry at all times and follow doctor's instructions regarding bathing/showering - Follow up plan Follow up: VANDANA PAZ MD [Primary Care Provider] - 7 Days Forms: [facility] Discharge Summary
[2020-08-04] MEDS: FERROUS SULFATE 325 MG TAB PO SCH (10:52)
== END 2020-08-04 11:30 | disposition home or self-care (01) | DRG 766 ==
LOC: APU 05:00 → OB 11:55
PROVIDERS: ADMIT Obstetrics & Gynecology; ATTEND Obstetrics & Gynecology
PROC: 10D00Z1 Extraction of Products of Conception, Low, Open Approach (ICD-10-PCS; principal; 2020-08-01)
PROC: 3E0234Z Introduction of Serum, Toxoid and Vaccine into Muscle, Percutaneous Approach (ICD-10-PCS; 2020-08-03)
DX: O34.211 Maternal care for low transverse scar from previous cesarean delivery (principal); Z37.0 Single live birth; Z3A.39 39 weeks gestation of pregnancy; Z23 Encounter for immunization; Z20.828 Contact with and (suspected) exposure to other viral communicable diseases; Z91.040 Latex allergy status; O99.52 Diseases of the respiratory system complicating childbirth; J45.909 Unspecified asthma, uncomplicated; O99.62 Diseases of the digestive system complicating childbirth; K21.9 Gastro-esophageal reflux disease without esophagitis; O90.81 Anemia of the puerperium; D64.9 Anemia, unspecified
CPT/HCPCS: 36415; 85014; 85018; 85025; 86592; 86850; 86900; 86901; 86920; 90471; 90715; G0378; J0690; J1100; J2210; J2270; J2370; J2405; J2590; J2765; J3490; J7120; U0003-CS

== ENCOUNTER 2020-12-14 19:23 | Emergency (ER) | payer MEDICAID ==
[2020-12-14] MEDS ORDERED: SODIUM CHLORIDE 0.9% 1000 ML 1,000 ML IV ONE (19:46)
[2020-12-14] MEDS ORDERED: ONDANSETRON 4 MG/2 ML INJ IV ONE (19:46)
[2020-12-14] MEDS ORDERED: FAMOTIDINE 20 MG/2 ML INJ IV ONE (19:46)
[2020-12-14] MEDS ORDERED: KETOROLAC 30 MG/1 ML INJ IV ONE (19:46)
[2020-12-14 19:48] VITALS: BP 122/65
--- NOTE | 2020-12-14 19:54 | Emergency Department Report ---
- General Chief Complaint: Headache Stated Complaint: HEADACHE/FALLON/LIGHT HEADED Source: patient Mode of arrival: Ambulatory Limitations: No Limitations - History of Present Illness Initial Comments: Patient is a 30-year-old -English female with past medical history of asthma who presents to the ED with complaint of acute onset persistent severe diffuse body aches and pains, nasal and sinus congestion, frontal sinus pressure and headache, sore throat, nausea and vomiting, pleuritic chest pain, lack of appetite for the last 2 weeks. Patient states that her symptoms got worse in the last 5 days. Patient states that other family members including her and her children have had similar symptoms which she attributes to having come from her. Patient states that she has been taking [id number] medications with no relief. Patient denies dizziness, syncope, chest pain, shortness of breath, change in vision, diarrhea, dysuria, urinary frequency and urgency, vaginal bleeding or vaginal discharge or sore throat. MD Complaint: fever, cough, sore throat, rhinorrhea, nasal congestion, sinus pain, other (Headache, diffuse body aches, nausea and vomiting) -: Sudden, week(s) (2) Severity: severe Severity scale (0 -10): 8 Quality: sharp, aching Consistency: constant Improves With: nothing Worsens With: nothing Context: sick contacts Associated Symptoms: denies other symptoms, fever, chills, myalgias, headache, rhinorrhea, nasal congestion, sore throat, cough, nausea, vomiting. denies: diaphoresis, shortness of breath, abdominal pain, diarrhea, dysuria, rash, right sweats, weight loss, epistaxis, hoarseness, ear pain, other Treatments Prior to Arrival: none - Related Data Previous Rx's Medication Instructions Recorded Last Taken Type Ferrous Sulfate [Feosol 325 MG tab] 325 mg PO BID #60 tablet 07/07/19 07/31/20 16:00 Rx HYDROcodone/APAP 5-325 [Mosier 1 each PO Q6HR PRN #30 tablet 07/07/19 Unknown Rx 5/325] Ibuprofen [Motrin 600 MG tab] 600 mg PO Q8H PRN #30 tablet 07/07/19 Unknown Rx Multivitamin with Iron 1 each PO DAILY #30 tablet 07/07/19 07/31/20 16:00 Rx [Multivitamins with Iron] Ibuprofen [Motrin] 600 mg PO Q8H PRN #30 tablet 08/01/20 Unknown Rx oxyCODONE /ACETAMINOPHEN [Percocet 1 tab PO Q6HR PRN #20 tablet 08/01/20 Unknown Rx 5/325] ALBUTEROL NEB's [Proventil 0.083% 3 ml IH Q6H PRN #75 ml 12/14/20 Unknown Rx NEBS] Albuterol Sulfate [Proventil Hfa] 1 - 2 puff IH Q6H PRN #1 hfa.aer.ad 12/14/20 Unknown Rx Azithromycin [Zithromax Z-RON] 250 mg PO DAILY #6 tablet 12/14/20 Unknown Rx Benzonatate [Tessalon Perles] 100 mg PO Q8HR #30 capsule 12/14/20 Unknown Rx Cetirizine HCl [Zyrtec 10mg tab] 10 mg PO DAILY #30 tablet 12/14/20 Unknown Rx Ibuprofen [Motrin] 600 mg PO Q8H PRN #24 tablet 12/14/20 Unknown Rx methylPREDNISolone [Medrol 4MG 4 mg PO DAILY #21 tab.ds.pk 12/14/20 Unknown Rx DOSEPAK (21 tabs)] Allergies Allergy/AdvReac Type Severity Reaction Status Date / Time latex Allergy Severe Hives Verified 06/15/18 22:15 ED Review of Systems ROS: Stated complaint: HEADACHE/FALLON/LIGHT HEADED Other details as noted in HPI Constitutional: chills, fever, malaise, weakness Eyes: denies: eye pain, eye discharge, vision change ENT: congestion, other (Frontal sinus pressure and headache). denies: ear pain, throat pain Respiratory: cough. denies: shortness of breath, wheezing Cardiovascular: denies: chest pain, palpitations Endocrine: no symptoms reported Gastrointestinal: nausea, vomiting. denies: abdominal pain, diarrhea Genitourinary: denies: urgency, dysuria, frequency, discharge, abnormal menses, dyspareunia Musculoskeletal: back pain, arthralgia, myalgia. denies: joint swelling Skin: denies: rash, lesions Neurological: headache. denies: weakness, paresthesias Psychiatric: denies: anxiety, depression Hematological/Lymphatic: denies: easy bleeding, easy bruising ED Past Medical Hx - Past Medical History Previous Medical History?: Yes Hx Hypertension: No Hx Heart Attack/AMI: No Hx Congestive Heart Failure: No Hx Diabetes: No Hx Deep Vein Thrombosis: No Hx Liver Disease: No Hx Renal Disease: No Hx Sickle Cell Disease: No Hx Seizures: No Hx Asthma: Yes (abutarol inhaler PRN, last used November 2019) Hx COPD: No Hx HIV: No - Surgical History Past Surgical History?: Yes Hx Pacemaker: No Hx Internal Defibrillator: No Additional Surgical History: left ovary removed, 2 c-sections - Social History Smoking Status: Never Smoker Substance Use Type: None - Medications Home Medications: Home Medications Medication Instructions Recorded Confirmed Last Taken Type Ferrous Sulfate [Feosol 325 MG tab] 325 mg PO BID #60 tablet 07/07/19 08/01/20 07/31/20 16:00 Rx HYDROcodone/APAP 5-325 [Mosier 1 each PO Q6HR PRN #30 tablet 07/07/19 08/01/20 Unknown Rx 5/325] Ibuprofen [Motrin 600 MG tab] 600 mg PO Q8H PRN #30 tablet 07/07/19 08/01/20 Unknown Rx Multivitamin with Iron 1 each PO DAILY #30 tablet 07/07/19 08/01/20 07/31/20 16:00 Rx [Multivitamins with Iron] Ibuprofen [Motrin] 600 mg PO Q8H PRN #30 tablet 08/01/20 Unknown Rx oxyCODONE /ACETAMINOPHEN [Percocet 1 tab PO Q6HR PRN #20 tablet 08/01/20 Unknown Rx 5/325] ALBUTEROL NEB's [Proventil 0.083% 3 ml IH Q6H PRN #75 ml 12/14/20 Unknown Rx NEBS] Albuterol Sulfate [Proventil Hfa] 1 - 2 puff IH Q6H PRN #1 hfa.aer.ad 12/14/20 Unknown Rx Azithromycin [Zithromax Z-RON] 250 mg PO DAILY #6 tablet 12/14/20 Unknown Rx Benzonatate [Tessalon Perles] 100 mg PO Q8HR #30 capsule 12/14/20 Unknown Rx Cetirizine HCl [Zyrtec 10mg tab] 10 mg PO DAILY #30 tablet 12/14/20 Unknown Rx Ibuprofen [Motrin] 600 mg PO Q8H PRN #24 tablet 12/14/20 Unknown Rx methylPREDNISolone [Medrol 4MG 4 mg PO DAILY #21 tab.ds.pk 12/14/20 Unknown Rx DOSEPAK (21 tabs)] ED Physical Exam - General Limitations: No Limitations General appearance: alert, in no apparent distress - Head Head exam: Present: atraumatic, normocephalic, normal inspection - Eye Eye exam: Present: normal appearance, PERRL, EOMI Pupils: Present: normal accommodation - ENT ENT exam: Present: normal orophraynx, mucous membranes moist, TM's normal bilaterally, normal external ear exam, other (Palpable frontal and maxillary sinus tenderness; grossly congested nasal passages) - Neck Neck exam: Present: normal inspection, full ROM. Absent: tenderness - Respiratory Respiratory exam: Present: wheezes (Mildly diffuse coarse wheezes throughout). Absent: respiratory distress, rales, rhonchi, chest wall tenderness, accessory muscle use, decreased breath sounds - Cardiovascular Cardiovascular Exam: Present: regular rate, normal rhythm, normal heart sounds. Absent: systolic murmur, diastolic murmur, rubs, gallop - GI/Abdominal GI/Abdominal exam: Present: soft, normal bowel sounds. Absent: tenderness, guarding, rebound, hyperactive bowel sounds, hypoactive bowel sounds, organomegaly - Extremities Exam Extremities exam: Present: normal inspection, full ROM, normal capillary refill - Back Exam Back exam: Present: normal inspection, full ROM. Absent: tenderness, CVA tenderness (R), muscle spasm, paraspinal tenderness, vertebral tenderness - Neurological Exam Neurological exam: Present: alert, oriented X3, CN II-XII intact, normal gait, reflexes normal - Psychiatric Psychiatric exam: Present: normal affect, normal mood - Skin Skin exam: Present: warm, dry, intact, normal color. Absent: rash ED Course Vital Signs 12/14/20 12/14/20 19:41 22:07 Temperature 98.4 F Pulse Rate 82 Pulse Rate [ 84 Bilateral] Respiratory 18 Rate Respiratory 20 Rate [Bilateral ] Blood Pressure 122/65 O2 Sat by Pulse 100 Oximetry ED Medical Decision Making - Lab Data Result diagrams: 12/14/20 19:51 12/14/20 19:51 - Radiology Data Radiology results: report reviewed, image reviewed Findings [facility] [address] [place] [address] XRay Report Signed Patient: NASIR HDEZ MR#: [id number] : 1990 Acct:[id number] Age/Sex: 30 / F ADM Date: 12/14/20 Loc: ED Attending Dr: Ordering Physician: YU RAM Date of Service: 12/14/20 Procedure(s): XR chest 1V ap Accession Number(s): [id number] cc: YU RAM Fluoro Time In Minutes: CHEST 1 VIEW INDICATION / CLINICAL INFORMATION: cough. COMPARISON: None available. FINDINGS: SUPPORT DEVICES: None. HEART / MEDIASTINUM: No significant abnormality. LUNGS / PLEURA: No significant pulmonary or pleural abnormality. No pneumothorax. ADDITIONAL FINDINGS: No significant additional findings. IMPRESSION: No acute pulmonary or pleural abnormality Signer Name: Nestor Persaud MD FACR Signed: 12/14/2020 9:31 PM Workstation Name: [id number] Transcribed By: Dictated By: Nestor Persaud MD Electronically Authenticated By: Nestor Persaud MD Signed Date/Time: 12/14/202130 DD/ 30 TD/TT: - Medical Decision Making This is a 30-year-old -English female with past medical history of asthma who presents to the ED with complaint of acute onset persistent severe diffuse body aches and pains, nasal and sinus congestion, frontal sinus pressure and headache, sore throat, nausea and vomiting, pleuritic chest pain, lack of appetite for the last 2 weeks. Patient states that her symptoms got worse in the last 5 days. Patient states that other family members including her and her children have had similar symptoms which she attributes to having come from her. Patient states that she has been taking [id number] medications with no relief. In the ED, patient is alert and oriented x3 and is not in any distress with normal vital signs. Patient received DuoNeb and albuterol treatments in the ED. Patient also received Solu-Medrol treatment in the ED in addition to pain medications, antiemetics and normal saline 1 L IV bolus x1. Lab test results were reviewed and are all nonactionable. Chest x-ray shows no acute cardiopulmonary abnormalities or pneumonitis. On reevaluation, patient felt better and was discharged home on medications and advised to follow-up with her primary care physician in 5 to 7 days for reevaluation. Patient is advised return to the ED immediately if symptoms get worse. - Differential Diagnosis Sinusitis; bronchitis; pneumonia; URI; pharyngitis; influenza; COVID-19 Critical care attestation.: If time is entered above; I have spent that time in minutes in the direct care of this critically ill patient, excluding procedure time. ED Disposition Clinical Impression: Acute upper respiratory infection, Acute non-recurrent frontal sinusitis, Acute bronchitis with asthma, Nausea and vomiting in adult Disposition: DC-01 TO HOME OR SELFCARE Is pt being admited?: No Does the pt Need Aspirin: No Condition: Stable Instructions: Acute Bronchitis (ED), Sinusitis, Adult, [id number], Upper Respiratory Infection, Adult, Xyft-[id number], Nausea and Vomiting, Adult, [id number], Acute Bronchitis, Adult, [id number] Additional Instructions: All lab test results were reviewed and are all nonactionable. Chest x-ray shows no acute cardiopulmonary abnormalities or pneumonitis. Therefore take medications with food, drink plenty of fluids and follow-up with your primary care physician in 5 to 7 days for reevaluation. Return to the ED immediately if symptoms get worse. Prescriptions: methylPREDNISolone [Medrol 4MG DOSEPAK (21 tabs)] 4 mg PO DAILY #21 tab.ds.pk Ibuprofen [Motrin] 600 mg PO Q8H PRN #24 tablet PRN Reason: Pain ALBUTEROL NEB's [Proventil 0.083% NEBS] 3 ml IH Q6H PRN #75 ml PRN Reason: Wheezing Albuterol Sulfate [Proventil Hfa] 1 - 2 puff IH Q6H PRN #1 hfa.aer.ad PRN Reason: Dyspnea Benzonatate [Tessalon Perles] 100 mg PO Q8HR #30 capsule Azithromycin [Zithromax Z-RON] 250 mg PO DAILY #6 tablet Cetirizine HCl [Zyrtec 10mg tab] 10 mg PO DAILY #30 tablet Referrals: [facility] [Provider Group] - 3-5 Days Time of Disposition: 22:35 Print Language: WELSH
[2020-12-14 20:22] LABS: Hemoglobin 12.7 gm/dl (10.1-14.3); Mean Corpuscular HGB Conc 33 % (30-34); Mean Corpuscular Volume 87 fl (79-97); Platelet Count 260 K/mm3 (140-440); Red Blood Count 4.47 M/mm3 (3.65-5.03)
[2020-12-14 20:35] LABS: Alanine Aminotransferase 14 units/L (7-56); Albumin 4.1 g/dL (3.9-5); Blood Urea Nitrogen 9 mg/dL (7-17); Calcium 8.8 mg/dL (8.4-10.2); Hemolysis Index 93
[2020-12-14 20:37] LABS: BUN/Creatinine Ratio 15
[2020-12-14 20:44] LABS: Bacteria,Urine 1+ /HPF (Negative); Bilirubin,Urine NEG (Negative); Blood,Urine NEG (Negative); Calcium Oxalate Crystals,Urine 1+; Color,Urine Yellow (Yellow); Mucus,Urine 3+ /HPF
[2020-12-14] MEDS ORDERED: IPRATROPIUM/ALBUTEROL SULFATE 3 ML AMPUL.NEB IH ONE (21:31)
[2020-12-14] MEDS ORDERED: ALBUTEROL 2.5 MG/3 ML NEBU IH ONE (21:31)
[2020-12-14] MEDS ORDERED: methylPREDNISolone Sod Succinate 40 MG/1 ML INJ IV ONE (21:31)
--- NOTE | 2020-12-14 21:35 | XRay Report ---
CHEST 1 VIEW INDICATION / CLINICAL INFORMATION: cough. COMPARISON: None available. FINDINGS: SUPPORT DEVICES: None. HEART / MEDIASTINUM: No significant abnormality. LUNGS / PLEURA: No significant pulmonary or pleural abnormality. No pneumothorax. ADDITIONAL FINDINGS: No significant additional findings. IMPRESSION: No acute pulmonary or pleural abnormality Signer Name: Nestor Persaud MD FACR Signed: 12/14/2020 9:31 PM Workstation Name: [id number]
[2020-12-14 22:05] LABS: Total Cells Counted 100
[2020-12-14 22:06] LABS: RBC Morphology Normal
[2020-12-14 22:07] LABS: Platelet Estimate Consistent w Auto
== END 2020-12-14 23:21 | disposition home or self-care (01) ==
LOC: ED 19:23
DX: J01.10 Acute frontal sinusitis, unspecified (principal); J45.909 Unspecified asthma, uncomplicated; R11.2 Nausea with vomiting, unspecified; Z79.899 Other long term (current) drug therapy; Z91.040 Latex allergy status
CPT/HCPCS: 36415; 71045; 80053; 81001; 84703; 85007; 85025; 94640; 96361; 96374; 96375; 99284; J1885; J2405; J2920; J7030; 94644

== ENCOUNTER 2021-08-02 05:12 | Emergency (ER) | payer MEDICAID ==
[2021-08-02 05:25] VITALS: BP 105/74
[2021-08-02 06:15] LABS: Basophils % (Auto) 0.4 % (0.0-1.8); Eosinophils # (Auto) 0.1 K/mm3 (0.0-0.4); Eosinophils % (Auto) 1.2 % (0.0-4.3); Hematocrit 35.8 % (30.3-42.9); Hemoglobin 12.1 gm/dl (10.1-14.3); Lymphocytes # (Auto) 2.1 K/mm3 (1.2-5.4); Mean Corpuscular HGB Conc 34 % (30-34); Mean Corpuscular Volume 91 fl (79-97); Monocytes # (Auto) 0.6 K/mm3 (0.0-0.8); Monocytes % (Auto) 8.1 % (0.0-7.3); Platelet Count 249 K/mm3 (140-440); Red Blood Count 3.94 M/mm3 (3.65-5.03)
[2021-08-02] MEDS ORDERED: IBUPROFEN 600 MG TAB PO ONE (08:03)
--- NOTE | 2021-08-02 08:04 | Emergency Department Report ---
ED Female HPI - General Chief complaint: Vaginal Bleeding Stated complaint: PELVIC PAIN, HEADACHE, ABD PAIN, LT EAR PAIN Time Seen by Provider: 08/02/21 08:00 Source: patient Mode of arrival: Ambulatory Limitations: No Limitations - History of Present Illness Initial comments: 30-year-old -Filipino female presents to the emergency room complaining of several things. First she complains of having sharp groin pain that has been going on for 3 to 4 days. Second is she has back pain in her lower back. She complaining of headache and vaginal irritation. She states that she still spotting from being on Nexplanon. She reports she has a headache denies any nausea no vomiting no change of vision no photophobia. Patient is taking nothing for pain. MD Complaint: vaginal bleeding, vaginal discharge Location: other (Groin/vaginal genitalia) Quality: sharp Consistency: intermittent Improves with: none Worsens with: movement Are you Now?: No Associated Symptoms: vaginal bleeding, headaches. denies: vaginal discharge, abdominal pain, nausea/vomiting, fever/chills, dysuria, hematuria - Related Data Sexually active: Yes Previous Rx's Medication Instructions Recorded Last Taken Type Ferrous Sulfate [Feosol 325 MG tab] 325 mg PO BID #60 tablet 07/07/19 07/31/20 16:00 Rx HYDROcodone/APAP 5-325 [Cooter 1 each PO Q6HR PRN #30 tablet 07/07/19 Unknown Rx 5/325] Ibuprofen [Motrin 600 MG tab] 600 mg PO Q8H PRN #30 tablet 07/07/19 Unknown Rx Multivitamin with Iron 1 each PO DAILY #30 tablet 07/07/19 07/31/20 16:00 Rx [Multivitamins with Iron] Ibuprofen [Motrin] 600 mg PO Q8H PRN #30 tablet 08/01/20 Unknown Rx oxyCODONE /ACETAMINOPHEN [Percocet 1 tab PO Q6HR PRN #20 tablet 08/01/20 Unknown Rx 5/325] ALBUTEROL NEB's [Proventil 0.083% 3 ml IH Q6H PRN #75 ml 12/14/20 Unknown Rx NEBS] Albuterol Sulfate [Proventil Hfa] 1 - 2 puff IH Q6H PRN #1 hfa.aer.ad 12/14/20 Unknown Rx Azithromycin [Zithromax Z-RON] 250 mg PO DAILY #6 tablet 12/14/20 Unknown Rx Benzonatate [Tessalon Perles] 100 mg PO Q8HR #30 capsule 12/14/20 Unknown Rx Cetirizine HCl [Zyrtec 10mg tab] 10 mg PO DAILY #30 tablet 12/14/20 Unknown Rx Ibuprofen [Motrin] 600 mg PO Q8H PRN #24 tablet 12/14/20 Unknown Rx methylPREDNISolone [Medrol 4MG 4 mg PO DAILY #21 tab.ds.pk 12/14/20 Unknown Rx DOSEPAK (21 tabs)] Doxycycline Hyclate [Doxycycline 100 mg PO Q12HR 10 Days #20 tab 08/02/21 Unknown Rx Hyclate TAB] Fluconazole [Diflucan TAB] 100 mg PO QDAY #1 tablet 08/02/21 Unknown Rx metroNIDAZOLE [Flagyl] 4 tab PO ONCE #4 tab 08/02/21 Unknown Rx Allergies Allergy/AdvReac Type Severity Reaction Status Date / Time latex Allergy Severe Hives Verified 06/15/18 22:15 ED Review of Systems ROS: Stated complaint: PELVIC PAIN, HEADACHE, ABD PAIN, LT EAR PAIN Other details as noted in HPI Comment: All other systems reviewed and negative ED Past Medical Hx - Past Medical History Previous Medical History?: Yes Hx Hypertension: No Hx Heart Attack/AMI: No Hx Congestive Heart Failure: No Hx Diabetes: No Hx Deep Vein Thrombosis: No Hx Liver Disease: No Hx Renal Disease: No Hx Sickle Cell Disease: No Hx Seizures: No Hx Asthma: Yes (abutarol inhaler PRN, last used November 2019) Hx COPD: No Hx HIV: No - Surgical History Past Surgical History?: Yes Hx Pacemaker: No Hx Internal Defibrillator: No Additional Surgical History: left ovary removed, 6 c-sections - Social History Smoking Status: Never Smoker Substance Use Type: None - Medications Home Medications: Home Medications Medication Instructions Recorded Confirmed Last Taken Type Ferrous Sulfate [Feosol 325 MG tab] 325 mg PO BID #60 tablet 07/07/19 08/01/20 07/31/20 16:00 Rx HYDROcodone/APAP 5-325 [Cooter 1 each PO Q6HR PRN #30 tablet 07/07/19 08/01/20 Unknown Rx 5/325] Ibuprofen [Motrin 600 MG tab] 600 mg PO Q8H PRN #30 tablet 07/07/19 08/01/20 Unknown Rx Multivitamin with Iron 1 each PO DAILY #30 tablet 07/07/19 08/01/20 07/31/20 16:00 Rx [Multivitamins with Iron] Ibuprofen [Motrin] 600 mg PO Q8H PRN #30 tablet 08/01/20 Unknown Rx oxyCODONE /ACETAMINOPHEN [Percocet 1 tab PO Q6HR PRN #20 tablet 08/01/20 Unknown Rx 5/325] ALBUTEROL NEB's [Proventil 0.083% 3 ml IH Q6H PRN #75 ml 12/14/20 Unknown Rx NEBS] Albuterol Sulfate [Proventil Hfa] 1 - 2 puff IH Q6H PRN #1 hfa.aer.ad 12/14/20 Unknown Rx Azithromycin [Zithromax Z-RON] 250 mg PO DAILY #6 tablet 12/14/20 Unknown Rx Benzonatate [Tessalon Perles] 100 mg PO Q8HR #30 capsule 12/14/20 Unknown Rx Cetirizine HCl [Zyrtec 10mg tab] 10 mg PO DAILY #30 tablet 12/14/20 Unknown Rx Ibuprofen [Motrin] 600 mg PO Q8H PRN #24 tablet 12/14/20 Unknown Rx methylPREDNISolone [Medrol 4MG 4 mg PO DAILY #21 tab.ds.pk 12/14/20 Unknown Rx DOSEPAK (21 tabs)] Doxycycline Hyclate [Doxycycline 100 mg PO Q12HR 10 Days #20 tab 08/02/21 Unknown Rx Hyclate TAB] Fluconazole [Diflucan TAB] 100 mg PO QDAY #1 tablet 08/02/21 Unknown Rx metroNIDAZOLE [Flagyl] 4 tab PO ONCE #4 tab 08/02/21 Unknown Rx ED Physical Exam - General Limitations: No Limitations General appearance: alert, in no apparent distress - Head Head exam: Present: atraumatic, normocephalic - Eye Eye exam: Present: normal appearance - ENT ENT exam: Present: mucous membranes moist, TM's normal bilaterally. Absent: normal external ear exam - Neck Neck exam: Present: normal inspection, full ROM - Respiratory Respiratory exam: Absent: accessory muscle use - Cardiovascular Cardiovascular Exam: Present: regular rate - GI/Abdominal GI/Abdominal exam: Present: soft, tenderness. Absent: distended - External exam: Present: other (Bilateral groin tenderness) Speculum exam: Present: vaginal discharge - Extremities Exam Extremities exam: Present: normal inspection, full ROM - Back Exam Back exam: Present: normal inspection - Neurological Exam Neurological exam: Present: alert, oriented X3, normal gait - Psychiatric Psychiatric exam: Present: normal affect, normal mood - Skin Skin exam: Present: warm, dry, intact, normal color. Absent: rash ED Course Vital Signs 08/02/21 05:16 Temperature 98.3 F Pulse Rate 92 H Respiratory 13 Rate Blood Pressure 105/74 O2 Sat by Pulse 99 Oximetry ED Medical Decision Making - Lab Data Result diagrams: 08/02/21 05:53 - Medical Decision Making 30-year-old -Filipino female presents to the emergency room complaining of several things. First she complains of having sharp groin pain that has been going on for 3 to 4 days. Second is she has back pain in her lower back. She complaining of headache and vaginal irritation. She states that she still spotting from being on Nexplanon. She reports she has a headache denies any nausea no vomiting no change of vision no photophobia. Patient is taking nothing for pain. Exam was chaperoned by nurse Llanos from evening or night nurse supervisor. Urinalysis was sent off wet prep sent off CBC is stable. Negative test Critical care attestation.: If time is entered above; I have spent that time in minutes in the direct care of this critically ill patient, excluding procedure time. ED Disposition Clinical Impression: STD (female), Trichomonas vaginitis Disposition: HOME / SELF CARE / HOMELESS Is pt being admited?: No Does the pt Need Aspirin: No Condition: Stable Instructions: Vaginal Yeast Infection, Adult, Trichomoniasis, Gonorrhea Additional Instructions: Your cultures came back concerning for gonorrhea trichomonas yeast and possible chlamydia. You are being treated. Complete your antibiotics that are given to you as a prescription. You need to follow-up at the health department for full STD evaluation. Refrain from having intercourse for 2 weeks and have your partner or partners checked and treated. Prescriptions: Fluconazole [Diflucan TAB] 100 mg PO QDAY #1 tablet Doxycycline Hyclate [Doxycycline Hyclate TAB] 100 mg PO Q12HR 10 Days #20 tab metroNIDAZOLE [Flagyl] 4 tab PO ONCE #4 tab Referrals: [facility] [Outside] - 3-5 Days Forms: Work/School Release Form(ED) Time of Disposition: 08:45
[2021-08-02] MEDS ORDERED: LIDOCAINE-MPF (1%) 10 MG/1 ML VIAL 5 ML INFILTRATI ONE (08:37)
[2021-08-02 09:53] LABS: Bilirubin,Urine NEG (Negative); Blood,Urine NEG (Negative); Color,Urine Yellow (Yellow); Mucus,Urine FEW /HPF; Protein,Urine <15 mg/dL mg/dL (Negative)
== END 2021-08-02 09:11 | disposition home or self-care (01) ==
LOC: ED 05:12
DX: A64 Unspecified sexually transmitted disease (principal); A59.01 Trichomonal vulvovaginitis; Z91.040 Latex allergy status
CPT/HCPCS: 36415; 81001; 84702; 85025; 87086; 87210; 96372; 99284; J0696; 99283